=== PATIENT | male | born 2000 | race Two or more races ===

== ENCOUNTER 2021-03-17 12:18 | Emergency (ER) | payer MEDICAID, OTHER ==
[~2021-03-17] VITALS: Ht 170.2 cm; Wt 71.6 kg
[2021-03-17 12:38] VITALS: BP 113/61
== END 2021-03-17 12:50 ==
LOC: ED 12:40
DX: Z20.6 Contact with and (suspected) exposure to human immunodeficiency virus [HIV] (principal)
CPT/HCPCS: 99281